=== PATIENT | female | born 1940 | race Caucasian/White ===

== ENCOUNTER → 2018-02-18 09:41 | Outpatient (CLI) | payer MEDICARE, SELFPAY | PROVIDERS: PCP Internal Medicine; Visit Provider Internal Medicine | DX: J32.9 Chronic sinusitis, unspecified (principal) | CPT/HCPCS: 70486 ==

== ENCOUNTER → 2018-03-09 10:22 | Outpatient (CLI) | payer MEDICARE, SELFPAY ==
--- NOTE | 2018-03-09 | DI.CT.S_ITS ---
PROCEDURE: CT SINUS SCREEN WO CON INDICATIONS: Chronic sinusitis, unspecified TECHNIQUE: Noncontrast 3.0 mm axial images acquired from the frontal sinuses to the mid-sella, with coronal and sagittal reformats. For radiation dose reduction, the following was used: automated exposure control, adjustment of mA and/or kV according to patient size. COMPARISON: None. FINDINGS: Image quality: Excellent. Maxillary Sinuses: No bony remodeling or destruction. Right maxillary sinus ucosal thickening and small air-fluid level. Ethmoid Air Cells: No bony remodeling or destruction. Sinuses are clear. Sphenoid Sinuses: No bony remodeling or destruction. Sinuses are clear. Frontal Sinuses: No bony remodeling or destruction. Sinuses are clear. Ostiomeatal Complexes: Ostiomeatal complexes are patent. No Cralos cells. Miscellaneous: Visualized intra-orbital contents are normal. No neal bullosa or paradoxical turbinate curvature. No nasal septal deviation. IMPRESSION: Mild right maxillary sinusitis. Dictated by: Elena Mora M.D. on 03/09/2018 at 11:48 Approved by: Elena Mora M.D. on 03/09/2018 at 11:50
== END ==
PROVIDERS: PCP Internal Medicine; Visit Provider Internal Medicine
DX: J32.0 Chronic maxillary sinusitis (principal); R61 Generalized hyperhidrosis
CPT/HCPCS: 70486

== ENCOUNTER → 2018-06-28 12:23 | Outpatient (CLI) | payer MEDICARE, SELFPAY ==
--- NOTE | 2018-06-28 | DI.RAD.S_ITS ---
PROCEDURE: XR THORACIC SPINE 3V INDICATIONS: UPPER BACK PAIN TECHNIQUE: 3 views of the thoracic spine were acquired. COMPARISON: None. FINDINGS: Bones: No fractures or dislocations. There is mild scoliosis. Moderate degenerative changes are present scattered in the thoracic spine. No suspicious bony lesions. 12 pairs of ribs are noted, and appear intact where visualized. There is lower lumbar spine fusion. Soft tissues: No paravertebral stripe thickening. There are multiple calcific densities in the mediastinum, most likely related to remote granulomatous infections. IMPRESSION: 1. Degenerative disc disease of the thoracic spine. 2. Mild scoliosis. Dictated by: Elena Mora M.D. on 06/28/2018 at 16:48 Approved by: Elena Mora M.D. on 06/28/2018 at 16:51
--- NOTE | 2018-06-28 | DI.RAD.S_ITS ---
PROCEDURE: XR CERVICAL SPINE 2V OR 3V INDICATIONS: UPPER BACK PAIN TECHNIQUE: 3 view(s) of the cervical spine were acquired. COMPARISON: None. FINDINGS: Bones: No fractures or dislocations to the C7 level. The lateral masses of C1 appear intact on the odontoid view. No suspicious bony lesions. There is severe degenerative disc disease at C3-C4, C4-C5 and C5-C6, and moderate degenerative disc disease at C6-C7. Mild bilateral facet also be scattered in cervical spine. Soft tissues: No prevertebral soft tissue swelling. IMPRESSION: Degenerative disc and facet disease in cervical spine as described. Dictated by: Elena Mora M.D. on 06/28/2018 at 16:43 Approved by: Elena Mora M.D. on 06/28/2018 at 16:48
== END ==
PROVIDERS: PCP Internal Medicine; Visit Provider Internal Medicine
DX: M50.31 Other cervical disc degeneration, high cervical region (principal); M51.34 Other intervertebral disc degeneration, thoracic region; M41.9 Scoliosis, unspecified
CPT/HCPCS: 72040; 72072

== ENCOUNTER → 2019-03-20 11:17 | Outpatient (CLI) | payer MEDICARE, SELFPAY ==
--- NOTE | 2019-03-20 | DI.RAD.S_ITS ---
PROCEDURE: XR LUMBAR SPINE 2-3V INDICATIONS: BACK PAIN TECHNIQUE: 2 views of the lumbar spine were acquired. COMPARISON: [facility], CR, XR THORACIC SPINE 3V, 06/28/2018, 12:31. FINDINGS: Bones: 5 [id number] vertebrae are present. There is normal bony alignment by prior posterior fixation transverse that is a vertical fixation rods crossing L4-S1. No vertebral body compression fractures. No suspicious bony lesions. Soft tissues: Overlying bowel gas pattern is normal. No suspicious soft tissue calcifications. IMPRESSION: Prior spine fusion procedure, L4-S1, no compression fracture found, no subluxation identified. Only a mild degree of degenerative disc disease along the lumbosacral spine as seen above L4. Dictated by: Matt Novoa M.D. on 03/20/2019 at 13:19 Approved by: Matt Novoa M.D. on 03/20/2019 at 13:21
== END ==
PROVIDERS: PCP Internal Medicine; Visit Provider Internal Medicine
DX: M54.5 Low back pain (principal); M51.36 Other intervertebral disc degeneration, lumbar region; Z98.1 Arthrodesis status
CPT/HCPCS: 72100

== ENCOUNTER → 2019-05-02 17:25 | Outpatient (CLI) | payer MEDICARE, SELFPAY ==
--- NOTE | 2019-05-02 | DI.MRI.S_ITS ---
PROCEDURE: MR LUMBAR SPINE WO CON INDICATIONS: low back pain TECHNIQUE: Noncontrast sagittal T1 spin echo and T2 fast echo, sagittal STIR, axial T1 and T2 fast spin echo through the lumbar spine. In cases with scoliosis, additional coronal T2 fast spin echo may be performed. COMPARISON: [facility], CR, XR LUMBAR SPINE 2-3V, 03/20/2019, 11:24. FINDINGS: Image quality: Excellent. Alignment and Curvature: There is L4-S1 posterior lateral tahir and pedicle screw fixation with pedicle screws in L4 and S1 bilaterally and interbody fusion at L4-L5 and L5-S1. Trace anterolisthesis of L4 on L5 and retrolisthesis of L3 on L4. Bone Marrow: Marrow is of normal overall signal. No acute vertebral body compression fractures. Spinal Cord: Conus medullaris terminates at the L1-L2 level. Visualized cord demonstrates normal signal and size. Paraspinous Soft Tissues: No paravertebral masses. T11-T12: Disc height loss. Minimal disc bulge. Left facet and ligament hypertrophy with narrowing of the left lateral recess. Moderate left foraminal narrowing. Mild flattening deformity of the exiting left T11 nerve root. T12-L1: No canal stenosis or foraminal stenosis. L1-L2: Mild disc bulge. Mild facet and ligament hypertrophy. No canal stenosis or foraminal stenosis. L2-L3: Severe disc height loss. Posterior disc bulge. Facet and ligament hypertrophy. Mild to moderate canal stenosis. Mild to moderate right foraminal narrowing. Mild left foraminal narrowing. L3-L4: Posterior disc bulge. Facet and ligament hypertrophy. Moderate canal stenosis. Mild right foraminal stenosis. L4-L5: Fused level. No canal stenosis. Bilateral facet hypertrophy. Mild bilateral foraminal narrowing. L5-S1: Fused level. No canal stenosis. Mild left foraminal stenosis. IMPRESSION: 1. Remote L4-S1 fusion. 2. Canal stenosis is mild to moderate at L2-L3 and moderate at L3-L4. Dictated by: John Jung M.D. on 05/03/2019 at 8:15 Approved by: John Jung M.D. on 05/03/2019 at 8:24
== END ==
PROVIDERS: PCP Internal Medicine; Referring Provider Internal Medicine; Visit Provider Internal Medicine
DX: M54.5 Low back pain (principal); M54.16 Radiculopathy, lumbar region; M48.061 Spinal stenosis, lumbar region without neurogenic claudication; Z98.1 Arthrodesis status
CPT/HCPCS: 72148

== ENCOUNTER → 2021-09-24 14:15 | Outpatient (CLI) | payer MEDICARE, SELFPAY ==
[2021-09-24 14:40] LABS: Add Manual Diff / Slide Review NO; Basophils Absolute Auto 100 /uL (0-100); Basophils Percent Auto 0.9 % (0-2); Eosinophils Absolute Auto 100 /uL (0-450); Hematocrit 40.9 % (36-46); Hemoglobin 13.8 g/dL (12.0-16.0); Lymphocytes Absolute Auto 1600 /uL (1100-4500); Lymphocytes Percent Auto 21.4 % (25-40); Mean Corpuscular HGB Conc 33.8 % (30-36); Mean Corpuscular Hemoglobin 31.1 PG (26-34); Monocytes Absolute Auto 800 /uL (0-900); Monocytes Percent Auto 10.5 % (3-14); Neutrophils Absolute Auto 4800 /uL (1500-7000); Neutrophils Percent Auto 66.2 % (50-75); Platelet Count 208 X10^3/uL (150-400); Red Blood Cell Count 4.44 X10^6/uL (4.0-5.2); Red Cell Distribution Width 12.6 % (11.6-14.8); White Blood Cell Count 7.3 X10^3/uL (4.5-11.0)
[2021-09-24 14:55] LABS: Alanine Aminotransferase 13 IU/L (<35); Albumin 4.3 g/dL (3.5-5.0); Albumin Globulin Ratio 1.5 (1.0-2.8); Alkaline Phosphatase 51 U/L (38-126); Aspartate Aminotransferase 23 IU/L (14-36); BUN Creatinine Ratio 17.1 (6-22); Bilirubin Total 0.6 mg/dL (0.2-1.3); Blood Urea Nitrogen 13 mg/dL (7-17); Calcium 9.2 mg/dL (8.4-10.2); Carbon Dioxide 29 mmol/L (22-32); Chloride 94 mmol/L (98-107); Cholesterol 234 mg/dL (140-199); Estimated Glomerular Filt Rate > 60 mL/min (>60); Globulin 2.8 g/dL (1.7-4.1); Glucose 92 mg/dL (80-110); HDL Cholesterol 87 mg/dL (40-60); HEMOLYSIS 28 (0-50); LDL Cholesterol Calculated 122 mg/dL (<100); Potassium 3.8 mmol/L (3.4-5.1); Sodium 132 mmol/L (137-145); Total Protein 7.1 g/dL (6.3-8.2); Triglycerides 124 mg/dL (35-150)
[2021-09-24 15:24] LABS: TSH w/ Reflex to FT4 3.31 uIU/mL (0.47-4.68)
[2021-09-24 17:00] LABS: Microalbumin Urine Random 0.8 mg/dL (0-1.6)
[2021-09-24 17:03] LABS: Microalbumi Creatinin Ratio Ur 8.8 ug/mg CR (<30)
== END ==
PROVIDERS: PCP Family Medicine; Referring Provider Family Medicine; Visit Provider Family Medicine
DX: I10 Essential (primary) hypertension (principal); F33.9 Major depressive disorder, recurrent, unspecified; M54.50 Low back pain, unspecified; G89.29 Other chronic pain
CPT/HCPCS: 36415; 80053; 80061; 82043; 82570; 84443; 85025

== ENCOUNTER → 2022-01-01 10:20 | Outpatient (CLI) | payer MEDICARE, SELFPAY ==
[2022-01-01 11:31] LABS: Add Manual Diff / Slide Review NO; Basophils Absolute Auto 0 /uL (0-100); Eosinophils Absolute Auto 100 /uL (0-450); Eosinophils Percent Auto 2.7 % (2-4); Hematocrit 39.2 % (36-46); Hemoglobin 13.1 g/dL (12.0-16.0); Lymphocytes Absolute Auto 1000 /uL (1100-4500); Mean Corpuscular HGB Conc 33.3 % (30-36); Mean Corpuscular Hemoglobin 30.8 PG (26-34); Mean Corpuscular Volume 92.4 fL (80-100); Monocytes Absolute Auto 600 /uL (0-900); Monocytes Percent Auto 15.1 % (3-14); Neutrophils Absolute Auto 2400 /uL (1500-7000); Neutrophils Percent Auto 57.2 % (50-75); Platelet Count 198 X10^3/uL (150-400); Red Blood Cell Count 4.24 X10^6/uL (4.0-5.2); White Blood Cell Count 4.2 X10^3/uL (4.5-11.0)
[2022-01-01 11:45] LABS: Alanine Aminotransferase 14 IU/L (<35); Albumin 4.1 g/dL (3.5-5.0); Albumin Globulin Ratio 1.2 (1.0-2.8); Alkaline Phosphatase 49 U/L (38-126); Aspartate Aminotransferase 22 IU/L (14-36); BUN Creatinine Ratio 17.2 (6-22); Bilirubin Total 0.4 mg/dL (0.2-1.3); Blood Urea Nitrogen 15 mg/dL (7-17); Calcium 9.2 mg/dL (8.4-10.2); Carbon Dioxide 30 mmol/L (22-32); Chloride 98 mmol/L (98-107); Estimated Glomerular Filt Rate > 60 mL/min (>60); Globulin 3.4 g/dL (1.7-4.1); Glucose 75 mg/dL (80-110); HEMOLYSIS < 15 (0-50); Potassium 4.3 mmol/L (3.4-5.1); Sodium 136 mmol/L (137-145); Total Protein 7.5 g/dL (6.3-8.2)
[2022-01-01 11:56] LABS: HEMOLYSIS < 15 (0-50); Iron 57 ug/dL (37-170)
[2022-01-01 12:11] LABS: Percent Iron Saturation 17 % (15-50); Total Iron Binding Capacity 339 ug/dL (265-497); Transferrin 272 mg/dL (206-381)
[2022-01-01 12:46] LABS: Folate > 20.0 ng/mL (2.76-20.0); Vitamin B12 585 pg/mL (239-931)
== END ==
PROVIDERS: PCP Family Medicine; Referring Provider Internal Medicine Cardiovascular Disease; Visit Provider Internal Medicine Cardiovascular Disease
DX: D64.9 Anemia, unspecified (principal); I51.81 Takotsubo syndrome
CPT/HCPCS: 36415; 80053; 82607; 82746; 83540; 83550; 85025

== ENCOUNTER → 2023-06-30 10:47 | Outpatient (CLI) | payer OTHER, SELFPAY ==
[2023-06-30 11:50] LABS: Add Manual Diff / Slide Review NO; Basophils Absolute Auto 100 /uL (0-100); Basophils Percent Auto 1.1 % (0-2); Eosinophils Absolute Auto 100 /uL (0-450); Eosinophils Percent Auto 2.6 % (2-4); Hematocrit 39.9 % (36-46); Hemoglobin 13.4 g/dL (12.0-16.0); Lymphocytes Absolute Auto 1400 /uL (1100-4500); Lymphocytes Percent Auto 26.9 % (25-40); Mean Corpuscular HGB Conc 33.5 % (30-36); Mean Corpuscular Hemoglobin 30.2 PG (26-34); Mean Corpuscular Volume 90.3 fL (80-100); Monocytes Absolute Auto 600 /uL (0-900); Monocytes Percent Auto 12.6 % (3-14); Neutrophils Absolute Auto 2900 /uL (1500-7000); Neutrophils Percent Auto 56.8 % (50-75); Platelet Count 200 X10^3/uL (150-400); Red Blood Cell Count 4.42 X10^6/uL (4.0-5.2); Red Cell Distribution Width 12.7 % (11.6-14.8); White Blood Cell Count 5.1 X10^3/uL (4.5-11.0)
[2023-06-30 12:05] LABS: Alanine Aminotransferase 11 IU/L (<35); Albumin 4.2 g/dL (3.5-5.0); Albumin Globulin Ratio 1.5 (1.0-2.8); Alkaline Phosphatase 54 U/L (38-126); Aspartate Aminotransferase 20 IU/L (14-36); BUN Creatinine Ratio 18.8 (6-22); Bilirubin Total 0.5 mg/dL (0.2-1.3); Blood Urea Nitrogen 15 mg/dL (7-17); Calcium 9.5 mg/dL (8.4-10.2); Carbon Dioxide 30 mmol/L (22-32); Chloride 102 mmol/L (98-107); Cholesterol 198 mg/dL (140-199); Estimated Glomerular Filt Rate > 60 mL/min (>60); Globulin 2.8 g/dL (1.7-4.1); Glucose 96 mg/dL (80-110); HDL Cholesterol 85 mg/dL (40-60); HEMOLYSIS < 15 (0-50); LDL Cholesterol Calculated 97 mg/dL (<100); Potassium 3.9 mmol/L (3.4-5.1); Sodium 136 mmol/L (137-145); Triglycerides 81 mg/dL (35-150)
[2023-06-30 12:40] LABS: TSH w/ Reflex to FT4 3.37 uIU/mL (0.47-4.68)
[2023-06-30 12:57] LABS: Hep C Virus Ab w/Reflex Quant NEGATIVE s/c (NEGATIVE)
[2023-06-30 16:58] LABS: Creatinine Urine Random 201.3 mg/dL
[2023-06-30 17:01] LABS: Microalbumi Creatinin Ratio Ur 11.9 ug/mg CR (<30); Microalbumin Urine Random 2.4 mg/dL (0-1.6)
[2023-07-02 04:22] LABS: Apolipoprotein B 86 mg/dL (<90)
== END ==
PROVIDERS: PCP Family Medicine; Referring Provider Family Medicine; Visit Provider Family Medicine
DX: I10 Essential (primary) hypertension (principal); F32.A Depression, unspecified; M54.9 Dorsalgia, unspecified; G89.29 Other chronic pain
CPT/HCPCS: 36415; 80053; 80061; 82043; 82172; 82570; 84443; 85025; 86803

== ENCOUNTER → 2024-02-28 14:06 | Outpatient (CLI) | payer OTHER, SELFPAY ==
--- NOTE | 2024-02-28 14:10 | DI.CT.S_ITS ---
PROCEDURE: CT ABDOMEN LIVER PROTOCOL INDICATIONS: hemangioma seen on imaging TECHNIQUE: 4 phase scanning was performed. Non-contrast 5 mm axial sections acquired from the diaphragm to the iliac crests. Following the administration of intravenous contrast, 5 mm thick arterial-phase, portal venous-phase, and 5-minute delayed phase images were acquired through the liver. 5 mm thick coronal and sagittal reformats were performed. For radiation dose reduction, the following was used: automated exposure control, adjustment of mA and/or kV according to patient size. COMPARISON: None. FINDINGS: Image quality: Excellent. Lower chest: Interlobular ground-glass, with associated bronchiectasis, probably organizing pneumonia. Calcified paraesophageal lymph nodes. ABDOMEN: Liver: Non cirrhotic liver morphology. There are a couple of liver lesions at the liver dome, which demonstrate are flash filling enhancement, measuring 1.4 cm in segment 7/8 (series 10, image 21) and 1 cm in segment 2 (series 10, image 21). These lesions fade on the portal venous and delayed sequences, without washout or rim enhancement. Additional subcentimeter hypoattenuating lesions, too small to characterize by CT. Gallbladder: No radiopaque gallstones or wall thickening. Biliary ducts: No biliary dilation, accounting for age. Pancreas: No ductal dilation. Spleen: Size is within normal limits. Benign 1.0 cm cystic lesion along the inferior margin, without enhancement. Adrenal Glands: No adrenal nodules. Kidneys and Ureters: No hydronephrosis. No solid mass. No complex renal cystic lesion which requires follow up. Stomach and Bowel: Normal colonic caliber, without significant wall thickening. Fecal debris within the small bowel. Peritoneum: No abnormal intraperitoneal fluid. No free air. Ventral Wall: No hernia. Abdominal Nodes: No retroperitoneal or mesenteric adenopathy by size criteria. Vessels: Aorta and inferior vena cava are normal in size. PELVIS: Pelvic Organs: Unremarkable. Bladder: Unremarkable. Pelvic Nodes: No enlarged lymph nodes. Miscellaneous: No inguinal hernias are seen. Bones: No aggressive osseous abnormality. Surgical fusion of the lower lumbar spine period IMPRESSION: Flash filling lesions at the liver dome, which demonstrate fading on the portal venous and delayed phases. Findings likely represent focal nodular hyperplasia or adenomas. This could be confirmed with liver MRI if necessary (hepatic mass protocol, [facility]). Organizing pneumonia of the lung bases. Fecal debris within the small-bowel, usually indicating small intestinal bacterial overgrowth versus slow transit. Dictated by: Connor Mujica M.D. on 02/28/2024 at 16:12 Approved by: Connor Mujica M.D. on 02/28/2024 at 16:19
--- NOTE | 2024-02-28 14:10 | DI.US.S_ITS ---
PROCEDURE: US ABDOMEN LIMITED INDICATIONS: Right upper quadrant eval N/V/D TECHNIQUE: Real-time scanning was performed of the abdominal and retroperitoneal organs, with image documentation. COMPARISON: [facility], CT, CT ABDOMEN LIVER PROTOCOL, 02/28/2024, 14:52. FINDINGS: Liver: Liver is normal in size and homogeneous in echotexture. Segment 7 hemangioma. Gallbladder: No gallstones. No wall thickening. No pericholecystic edema. Negative sonographic Ness's sign. Biliary ducts: Intrahepatic bile ducts are non-dilated. Extrahepatic bile duct caliber measures 8 mm; this is within normal limits given patient age Pancreas: Visualized portions of the pancreas are sonographically normal. Miscellaneous: No free abdominal fluid. IMPRESSION: No gallbladder pathology. Benign liver hemangioma in segment 8. Dictated by: Connor Mujica M.D. on 02/29/2024 at 14:54 Approved by: Connor Mujica M.D. on 02/29/2024 at 14:55
[2024-02-28 14:51] LABS: Estimated Glomerular Filt Rate 51 mL/min (>60); Lipase 192 U/L (23-300)
== END ==
PROVIDERS: Radiology Diagnostic Radiology; PCP Family Medicine; Referring Provider Family Medicine; Visit Provider Family Medicine
DX: D18.03 Hemangioma of intra-abdominal structures (principal); R11.2 Nausea with vomiting, unspecified; J84.89 Other specified interstitial pulmonary diseases; R19.7 Diarrhea, unspecified; R19.8 Other specified symptoms and signs involving the digestive system and abdomen; K76.9 Liver disease, unspecified; Z98.1 Arthrodesis status
CPT/HCPCS: 36415; 74170; 76705; 82565; 83690; Q9967